=== PATIENT | male | born 1985 | race Caucasian/White ===

== ENCOUNTER 2017-07-06 13:02 | Emergency (ER) | payer SELFPAY ==
[~2017-07-06] VITALS: Ht 182.9 cm; Wt 68.0 kg
[~2017-07-06 13:02] MED LIST: DICL-195 PO; IBUP200C71 PO
--- NOTE | 2017-07-06 13:27 | ER Report ---
History and Physical Time Seen By MD: 13:10 Hx. of Stated Complaint: pt reports he wrecked on his skate board, reports he hit his chin, L hand, L knee and L ankle- no loc. pt then reports he went to friends house and "passed out in bathroom" HPI/ROS CHIEF COMPLAINT: Fall, multiple injuries HISTORY OF PRESENT ILLNESS: Patient is a 31-year-old male coming by his mother, who presents the ED with complaint of multiple injuries after a fall on his skateboard. He states that he fell about an hour ago and noticed some pain to his left hand and left knee. He states that he also noticed that he was bleeding from his chin. He states that he had a mild headache and he went over to his friend's house and then he had a syncopal episode. He states that he has not eaten today and also has not been drinking fluids today. His mother states that he has had syncopal episodes in the past from looking at blood. Patient denies any nausea or vomiting. He has not noted any chest pain or shortness of breath. He states that most of his pain is in his knee and is concerned about his chin as well. He denies any neck pain. Is not known any numbness or tingling into his arms. REVIEW OF SYSTEMS: Constitutional: No fever, no chills. Cardiovascular: No chest pain, no palpitations. Respiratory: No cough, no shortness of breath. Gastrointestinal: No abdominal pain, no vomiting. Genitourinary: No hematuria. Musculoskeletal: No back pain. Skin: No rashes. Neurological: See history of present illness. Allergies: Coded Allergies: hydrocodone (Verified Allergy, Intermediate, hallucinations, 07/06/17) oxycodone (Verified Allergy, Intermediate, hallucination, 07/06/17) Penicillins (Verified Allergy, Unknown, 07/06/17) Home Meds Discontinued Scripts Diclofenac Sodium (DICLOFENAC SODIUM) 75 Mg Tablet., 75 MG PO BID, #20 TAB Prov:MARJ SARMIENTO 01/15/17 Reviewed Nurses Notes: Yes Old Medical Records Reviewed: Yes Hx Smoking: Yes Smoking Status: Current: Every Day Smoker, Heavy Tobacco Smoker Exposure to Second Hand Smoke?: Yes Hx Substance Use Disorder: No Hx Alcohol Use: No Constitutional Vital Sign - Last 24 Hours 07/06/17 07/06/17 07/06/1707/06/18 13:02 13:15 13:30 13:32 Temp 98.0 Pulse 74 59 Resp 16 B/P (MAP) 121/74 121/74 (90) 119/85 (96) Pulse Ox 94 98 O2 Delivery Room Air 07/06/17 07/06/17 07/06/17 07/06/17 14:00 14:07 14:17 14:27 Pulse 66 70 69 B/P (MAP) 130/84 (99) Pulse Ox 94 95 96 07/06/17 07/06/17 07/06/17 07/06/17 14:37 14:42 14:47 14:52 Pulse 69 67 73 89 Pulse Ox 94 94 93 95 Physical Exam General Appearance: The patient is alert, has no immediate need for airway protection and no signs of toxicity. Patient appears to be no acute distress. Eyes: Pupils equal and round no pallor or injection. EOMs are full bilaterally. ENT, Mouth: Mucous membranes are moist. Respiratory: There are no retractions, lungs are clear to auscultation. Cardiovascular: Regular rate and rhythm. Gastrointestinal: Abdomen is soft and non tender, no masses, bowel sounds normal. Neurological: Cranial nerves II through XII intact. Normal Romberg. Normal finger to nose test bilaterally. Skin: There is a 3 cm linear laceration located of mid chin. Area is bleeding. Musculoskeletal: Neck is supple non tender. There is a small abrasion to the left 5th metacarpal area of his hand on the dorsal aspect. He has pain located in this area with palpation. No swelling or ecchymosis identified. Radial pulses 2+ with normal capillary refill. Normal sensation. There is left knee pain in general with palpation. There is some ecchymosis and swelling of this area. Full range of motion with some mild pain. Negative anterior and posterior drawer test. Some mild pain with varus and valgus stress test. Negative Cristóbal's exam. PT and DP was is are 2+ with normal capillary refill. Normal sensation. DIFFERENTIAL DIAGNOSIS: After history and physical exam differential diagnosis was considered for head injury including but not limited to concussion, skull fracture, intraparenchymal contusion, subarachnoid, subdural and epidural hematoma. Medical Decision Making Data Points Result Diagram: 07/06/17 1325 07/06/17 1325 Laboratory Hematology Test 07/06/17 13:25 Red Blood Count 5.01 M/uL (4.00-5.60) Mean Corpuscular Volume 89.8 fL (80.0-96.0) Mean Corpuscular Hemoglobin 31.1 pg (26.0-33.0) Mean Corpuscular Hemoglobin Concent 34.6 g/dL (32.0-36.0) Red Cell Distribution Width 12.6 % (11.5-14.5) Mean Platelet Volume 7.2 fL (7.2-11.1) Neutrophils (%) (Auto) 66.9 % (39.4-72.5) Lymphocytes (%) (Auto) 22.4 % (17.6-49.6) Monocytes (%) (Auto) 7.4 % (4.1-12.4) Eosinophils (%) (Auto) 1.9 % (0.4-6.7) Basophils (%) (Auto) 1.4 % (0.3-1.4) Nucleated RBC Relative Count (auto) 0.0 /100WBC Neutrophils # (Auto) 4.1 K/uL (2.0-7.4) Lymphocytes # (Auto) 1.4 K/uL (1.3-3.6) Monocytes # (Auto) 0.5 K/uL (0.3-1.0) Eosinophils # (Auto) 0.1 K/uL (0.0-0.5) Basophils # (Auto) 0.1 K/uL (0.0-0.1) Nucleated RBC Absolute Count (auto) 0.00 K/uL Sodium Level 139 mmol/L (137-145) Potassium Level 3.5 mmol/L (3.5-5.0) Chloride Level 102 mmol/L (98-107) Carbon Dioxide Level 25 mmol/L (22-30) Blood Urea Nitrogen 11 mg/dl (9-21) Creatinine 1.00 mg/dl (0.66-1.25) Glomerular Filtration Rate Calc > 60.0 Random Glucose 112 mg/dl (75-110) Calcium Level 9.1 mg/dl (8.4-10.2) Total Bilirubin 0.3 mg/dl (0.2-1.3) Aspartate Amino Transf (AST/SGOT) 42 U/L (0-35) Alanine Aminotransferase (ALT/SGPT) 46 U/L (0-56) Alkaline Phosphatase 69 U/L (0-126) Total Protein 7.0 gm/dl (6.3-8.2) Albumin 4.2 g/dl (3.5-5.0) Chemistry Test 07/06/17 13:25 White Blood Count 6.1 k/uL (4.5-11.0) Red Blood Count 5.01 M/uL (4.00-5.60) Hemoglobin 15.6 g/dL (14.0-18.0) Hematocrit 45.0 % (42.0-52.0) Mean Corpuscular Volume 89.8 fL (80.0-96.0) Mean Corpuscular Hemoglobin 31.1 pg (26.0-33.0) Mean Corpuscular Hemoglobin Concent 34.6 g/dL (32.0-36.0) Red Cell Distribution Width 12.6 % (11.5-14.5) Platelet Count 190 K/uL (150-450) Mean Platelet Volume 7.2 fL (7.2-11.1) Neutrophils (%) (Auto) 66.9 % (39.4-72.5) Lymphocytes (%) (Auto) 22.4 % (17.6-49.6) Monocytes (%) (Auto) 7.4 % (4.1-12.4) Eosinophils (%) (Auto) 1.9 % (0.4-6.7) Basophils (%) (Auto) 1.4 % (0.3-1.4) Nucleated RBC Relative Count (auto) 0.0 /100WBC Neutrophils # (Auto) 4.1 K/uL (2.0-7.4) Lymphocytes # (Auto) 1.4 K/uL (1.3-3.6) Monocytes # (Auto) 0.5 K/uL (0.3-1.0) Eosinophils # (Auto) 0.1 K/uL (0.0-0.5) Basophils # (Auto) 0.1 K/uL (0.0-0.1) Nucleated RBC Absolute Count (auto) 0.00 K/uL Glomerular Filtration Rate Calc > 60.0 Calcium Level 9.1 mg/dl (8.4-10.2) Total Bilirubin 0.3 mg/dl (0.2-1.3) Aspartate Amino Transf (AST/SGOT) 42 U/L (0-35) Alanine Aminotransferase (ALT/SGPT) 46 U/L (0-56) Alkaline Phosphatase 69 U/L (0-126) Total Protein 7.0 gm/dl (6.3-8.2) Albumin 4.2 g/dl (3.5-5.0) EKG/Imaging EKG Interpretation 12 lead EKG: Rhythm: normal sinus rhythm [place]: normal QRS: normal ST segments: No acute ST changes identified. Imaging CT Head: IMPRESSION: Normal noncontrast head CT without evidence of mass lesion, acute infarct or hemorrhage. Report Dictated By: Lali Ackerman MD at 07/06/2017 2:16 PM Report E-Signed By: Lali Ackerman MD at 07/06/2017 2:[address] Facial Bones: IMPRESSION: There is a laceration inferior to the chin containing several punctate foreign bodies No evidence of a facial bone fracture There is incidental note of a lucent lesion in the maxilla surrounding the root of the left lateral incisor. Clinical follow-up recommended Report Dictated By: Lali Ackerman MD at 07/06/2017 2:25 PM Report E-Signed By: Lali Ackerman MD at 07/06/2017 2:31 PM Left Knee Xrays: IMPRESSION: 1. No acute osteoarticular abnormality identified over the left knee Report Dictated By: Lali Ackerman MD at 07/06/2017 2:23 PM Report E-Signed By: Lali Ackerman MD at 07/06/2017 2:25 PM Left Hand Xrays: IMPRESSION: 1. Suggestion of mild soft tissue swelling over the hyperthenar eminence although no evidence of acute fracture dislocation seen identified in the left hand Report Dictated By: Lali Ackerman MD at 07/06/2017 2:21 PM Report E-Signed By: Lali Ackerman MD at 07/06/2017 2:23 PM ED Course/Re-evaluation ED Course Will obtain labs and give patient 1 L normal saline bolus. Will obtain an EKG as well. Will obtain imaging including left hand x-rays, left knee x-rays, CT of the head and facial bones. 07/06/2017 3:08:37 pm - discussed all imaging and labs with patient and mother. He does have an incidental finding of a lesion around the root of his left lateral incisor. He states he has been having some issue with this tooth. He has very poor dentition overall. Will will cover him witha bx for possible abscess. Also placement antibiotics to cover for the laceration he received to his chin which was dirty. Discussed that he should see a dentist for this lesion and his maxilla. Procedure: Laceration repair. Verbal consent was obtained from the patient. The 3 cm jagged laceration on the chin was anesthetized in the usual fashion with 1% lidocaine with epinephrine. The wound was scrubbed, draped and explored to its base with a gloved finger. There were no deep structures involved. No tendon injury was identified. The wound was repaired with 5 5-0 Prolene sutures in simple interrupted fashion. The wound repair was simple. The procedure was performed by myself. Patient tolerated procedure well. Decision to Disposition Date: Jul 06, 2017 Decision to Disposition Time: 15:10 Depart Departure Latest Vital Signs Vital Signs Date Time Temp Pulse Resp B/P (MAP) Pulse Ox O2 Delivery O2 Flow Rate FiO2 07/06/17 14:52 89 95 07/06/17 14:00 130/84 (99) 07/06/17 13:02 98.0 16 Room Air Impression: Primary Impression: Contusion of knee, left Additional Impressions: Abrasion of left hand Head injury Chin laceration Syncope Radiolucent lesion in maxilla Condition: Improved Disposition: HOME OR SELF-CARE New Scripts Cephalexin 500 Mg Tab (KEFLEX 500 MG TAB) 500 Mg Tablet 500 MG PO Q6H, #28 TAB Prov: LILIAM COTTER PA-C 07/06/17 Patient Instructions: Facial Laceration (ED), Head Injury (ED), Knee Pain (ED) , Syncope (ED) Additional Instructions: Stable hydrated. Monitor for signs and symptoms of infection including redness, swelling, discharge, fever. Follow-up with primary care provider and dentist this week. You will need sutures removed in 5-7 days. If having any worsening or concerning symptoms may return to the emergency department. Problem Qualifiers Primary Impression: Contusion of knee, left Encounter type: initial encounter Qualified Codes: S80.02XA - Contusion of left knee, initial encounter Additional Impressions: Abrasion of left hand Encounter type: initial encounter Qualified Codes: S60.512A - Abrasion of left hand, initial encounter Head injury Encounter type: initial encounter Qualified Codes: S09.90XA - Unspecified injury of head, initial encounter Chin laceration Encounter type: initial encounter Qualified Codes: S01.81XA - Laceration without foreign body of other part of head, initial encounter Syncope Syncope type: unspecified Qualified Codes: R55 - Syncope and collapse LILIAM COTTER PA-C Jul 06, 2017 13:27
--- NOTE | 2017-07-06 13:30 | EKG ---
FACILITY: [facility] PATIENT NAME: MIMI CORTES : [id number] MR: [id number] V: [id number] EXAM DATE: ORDERING PHYSICIAN: LILIAM COTTER TECHNOLOGIST: LAURA Raman Reason : SYNCOPE Blood Pressure : / mmHG Vent. Rate : 064 BPM Atrial Rate : 064 BPM P-R Int : 180 ms QRS Dur : 098 ms QT Int : 416 ms P-R-T Axes : 061 085 063 degrees QTc Int : 429 ms Normal sinus rhythm with sinus arrhythmia Normal ECG No previous ECGs available Confirmed by GAIL MONK ([id number]) on 07/06/2017 1:40:03 PM Referred By: CYNDEE Confirmed By:GAIL MONK
[2017-07-06 13:45] LABS: PLATELET COUNT, AUTOMATED 190 K/uL (150-450)
--- NOTE | 2017-07-06 14:23 | RADIOLOGY IMAGING REPORT ---
FACILITY: [facility] PATIENT NAME: Trung Anaya : 1985 MR: [id number] V: [id number] EXAM DATE: ORDERING PHYSICIAN: LILIAM COTTER TECHNOLOGIST: Location: [facility] [place] Patient: Trung Anaya : 1985 Visit/Account:[id number] Date of Sevice: 07/06/2017 EXAMINATION: Head CT without intravenous contrast HISTORY: Head injury, syncope TECHNIQUE: Contiguous axial images were obtained from the skull base to the vertex without intraven ous contrast. Sagittal and coronal reformatted images are also submitted. Dose Lowering Technique One of the following dose optimization techniques was utilized in the performance of this exam: Autom ated exposure control; adjustment of the mA and/or kV according to the patient's size; or use of an i terative reconstruction technique. Specific details can be referenced in the facility's radiology C T exam operational policy. COMPARISON: None. FINDINGS: Brain volume: Normal. Ventricles: Normal. Acute ischemic changes: None. Hemorrhage: None. Masses / edema: None. Marley-white: Negative. White matter: Normal. Vessels: Negative. Extra-axial: Negative. Calvarium / scalp: Negative. Skull base / visualized face: Negative. Visualized sinuses / orbits: Negative. IMPRESSION: Normal noncontrast head CT without evidence of mass lesion, acute infarct or hemorrhage. Report Dictated By: Lali Ackerman MD at 07/06/2017 2:16 PM Report E-Signed By: Lali Ackerman MD at 07/06/2017 2:19 PM WSN:[email or web address]
--- NOTE | 2017-07-06 14:28 | RADIOLOGY IMAGING REPORT ---
FACILITY: [facility] PATIENT NAME: Trung Anaya : 1985 MR: [id number] V: [id number] EXAM DATE: ORDERING PHYSICIAN: LILIAM COTTER TECHNOLOGIST: Location: [facility] - [place] Patient: Trung Anaya : 1985 Visit/Account:[id number] Date of Sevice: 07/06/2017 Exam type: HAND COMPLETE LEFT History: left 5th metacarpal area injury Comparison: None. Findings: There is no evidence of acute fracture-dislocation involving the left hand. There suggestion of mild soft tissue swelling over the hyperthenar eminence IMPRESSION: 1. Suggestion of mild soft tissue swelling over the hyperthenar eminence although no evidence of acu te fracture dislocation seen identified in the left hand Report Dictated By: Lali Ackerman MD at 07/06/2017 2:21 PM Report E-Signed By: Lali Ackerman MD at 07/06/2017 2:23 PM WSN:OLGA
--- NOTE | 2017-07-06 14:30 | RADIOLOGY IMAGING REPORT ---
FACILITY: [facility] PATIENT NAME: Trung Anaya : 1985 MR: [id number] V: [id number] EXAM DATE: ORDERING PHYSICIAN: LILIAM COTTER TECHNOLOGIST: Location: [facility] Patient: Trung Anaya : 1985 Visit/Account:[id number] Date of Sevice: 07/06/2017 Exam type: KNEE 4 VIEW LEFT History: left knee injury, bruising Comparison: December 17, 2014. Findings: There is no evidence of acute fracture or dislocation involving the left knee. No radiopaque soft ti ssue foreign body identified IMPRESSION: 1. No acute osteoarticular abnormality identified over the left knee Report Dictated By: Lali Ackerman MD at 07/06/2017 2:23 PM Report E-Signed By: Lali Ackerman MD at 07/06/2017 2:25 PM WSN:[email or web address]
--- NOTE | 2017-07-06 14:35 | RADIOLOGY IMAGING REPORT ---
FACILITY: [facility] PATIENT NAME: Trung Anaya : 1985 MR: [id number] V: [id number] EXAM DATE: ORDERING PHYSICIAN: LILIAM COTTER TECHNOLOGIST: Location: [facility] - [place] Patient: Trung Anaya : 1985 Visit/Account:[id number] Date of Sevice: 07/06/2017 FACIAL BONES W/O CONTRAST History: syncope, head injury, chin laceration COMPARISON STUDIES: none TECHNIQUE: Axial images were obtained through the paranasal sinuses. Coronal reformatted images wer e obtained from the axial source data. No IV contrast was administered. Dose Lowering Technique One of the following dose optimization techniques was utilized in the performance of this exam: Autom ated exposure control; adjustment of the mA and/or kV according to the patient's size; or use of an i terative reconstruction technique. Specific details can be referenced in the facility's radiology C T exam operational policy. FINDINGS: Osseous structures: There is no demonstration of a facial bone fracture. There is incidental note o f a lucent lesion in the maxilla surrounding the root of the left lateral incisor. Sinuses: Sinuses are well-aerated. No evidence of air-fluid levels or mucoperiosteal thickening. Soft Tissues: There is a laceration inferior to the chin containing several punctate foreign bodies. Orbits: Normal. Visualized brain: negative IMPRESSION: There is a laceration inferior to the chin containing several punctate foreign bodies No evidence of a facial bone fracture There is incidental note of a lucent lesion in the maxilla surrounding the root of the left lateral i ncisor. Clinical follow-up recommended Report Dictated By: Lali Ackerman MD at 07/06/2017 2:25 PM Report E-Signed By: Lali Ackerman MD at 07/06/2017 2:31 PM WSN:[email or web address]
[2017-07-06] MEDS ORDERED: CEPH500T7 PO (15:16)
[2017-07-06] MEDS ORDERED: BACITRACIN OINT 0.9 GM PKT TP ONE (15:20)
[2017-07-06 15:24] VITALS: BP 122/87
--- NOTE | 2017-07-06 16:06 | RADIOLOGY IMAGING REPORT ---
FACILITY: [facility] PATIENT NAME: Trung Anaya : 1985 MR: [id number] V: [id number] EXAM DATE: ORDERING PHYSICIAN: LILIAM COTTER TECHNOLOGIST: Location: [facility] - [place] Patient: Trung Anaya : 1985 Visit/Account:[id number] Date of Sevice: 07/06/2017 Exam type: ANKLE 3 VIEW MIN LEFT History: left ankle pain, fall Comparison: None. Findings: There is no evidence of acute fracture-dislocation involving the left ankle. There is mild soft tiss ue swelling present. No significant arthritic change identified IMPRESSION: 1. Mild soft tissue swelling about the left ankle although no evidence of acute fracture or dislocat ion seen Report Dictated By: Lali Ackerman MD at 07/06/2017 3:55 PM Report E-Signed By: Lali Ackerman MD at 07/06/2017 4:01 PM WSN:OLGA
== END 2017-07-06 16:00 | disposition home or self-care (01) ==
LOC: ER 13:09
DX: S01.81XA Laceration without foreign body of other part of head, initial encounter (principal); R55 Syncope and collapse; S09.90XA Unspecified injury of head, initial encounter; S60.512A Abrasion of left hand, initial encounter; S80.02XA Contusion of left knee, initial encounter; K08.89 Other specified disorders of teeth and supporting structures
CPT/HCPCS: 70450; 70486; 73564; 82040; 82247; 82310; 82374; 82435; 82565; 82947; 84075; 84132; 84155; 84295; 84450; 84460; 84520; 85025; 93005; 99284

== ENCOUNTER 2017-07-13 13:01 | Emergency (ER) | payer SELFPAY ==
[~2017-07-13 13:01] MED LIST changes: +CEPH500T7 PO
--- NOTE | 2017-07-13 13:20 | ER Report ---
History and Physical Time Seen By MD: 13:08 HPI/ROS CHIEF COMPLAINT: Laceration, suture removal. HISTORY OF PRESENT ILLNESS: The patient returns to the ED for suture removal. There have been no problems and no symptoms of infection. The laceration was on the chin. Sutures have been in place for 5 days. Allergies: Coded Allergies: hydrocodone (Verified Allergy, Intermediate, hallucinations, 07/06/17) oxycodone (Verified Allergy, Intermediate, hallucination, 07/06/17) Penicillins (Verified Allergy, Unknown, 07/06/17) Home Meds Active Scripts Cephalexin 500 Mg Tab (KEFLEX 500 MG TAB) 500 Mg Tablet, 500 MG PO Q6H, #28 TAB Prov:LILIAM COTTER PA-C 07/06/17 Discontinued Scripts Diclofenac Sodium (DICLOFENAC SODIUM) 75 Mg Tablet., 75 MG PO BID, #20 TAB Prov:MARJ SARMIENTO 01/15/17 Past Medical/Surgical History Patient has a past medical history of migraines, fractures. Patient has surgical history of wisdom teeth being removed. Reviewed Nurses Notes: Yes Hx Smoking: Yes Smoking Status: Current: Every Day Smoker, Heavy Tobacco Smoker Exposure to Second Hand Smoke?: Yes Hx Substance Use Disorder: No Hx Alcohol Use: No Physical Exam General appearance: alert no distress Skin: The laceration of the chin is well healing and appears to have no evidence of infection. MEDICAL DECISION MAKING: I removed the sutures. Following removal there was no dehiscence of the wound. Medical Decision Making ED Course/Re-evaluation ED Course Patient was admitted to an exam room, history of physical or obtained. It differential diagnoses were considered. On examination patient has a laceration that appears to be healing well. We will go ahead and remove the sutures. That was done with no difficulties. We will go ahead and discharge patient home at this time. Patient verbalized understanding and agreement with plan. Decision to Disposition Date: Jul 13, 2017 Decision to Disposition Time: 13:20 Depart Departure Impression: Primary Impression: Visit for suture removal Condition: Improved Disposition: HOME OR SELF-CARE Patient Instructions: Stitches Removal (ED) Additional Instructions: Keep wound clean. You may apply some triple antibiotic ointment to the wound. Follow up with your Primary care provider in the next week if you have any concerns. Take Tylenol or Ibuprofen as needed for pain. Return to the ER if condition worsens. MARJ SARMIENTO Jul 13, 2017 13:20
== END 2017-07-13 13:40 | disposition home or self-care (01) ==
LOC: ER 13:19
DX: S01.81XD Laceration without foreign body of other part of head, subsequent encounter (principal)
CPT/HCPCS: 99282